=== PATIENT | female | born 1990 | race Caucasian/White ===

== ENCOUNTER 2019-04-28 13:51 | Emergency (ER) | payer MEDICAID ==
[~2019-04-28] VITALS: Ht 165.1 cm; Wt 68.0 kg
[2019-04-28 13:56] VITALS: Ht 165.1 cm; Wt 68.0 kg
[2019-04-28 15:31] VITALS: BP 99/49
== END 2019-04-28 15:31 | disposition home or self-care (01) ==
LOC: ED 13:51
DX: O26.892 Other specified pregnancy related conditions, second trimester (principal); R10.30 Lower abdominal pain, unspecified; Z3A.19 19 weeks gestation of pregnancy